=== PATIENT | male | born 1990 | race Caucasian/White ===

== ENCOUNTER 2018-05-23 16:30 | Emergency (ER) | payer SELFPAY ==
[2018-05-23 17:11] VITALS: BP 131/79
--- NOTE | 2018-05-23 17:16 | UC ---
Complaint Male HPI - HPI Summary HPI Summary: Patient presents complaining of a rash on the tip of his penis and a cloudy discharge around the same area for the past 3 days.. He feels like it is getting progressively worse he notes it was extremely itchy at onset and he feels he irritated the area with his scratching. He denies any actual urethral discharge he is adamant that he has never been sexually active. He denies any other rash he denies fever chills abdominal pain and offers no other complaints. - History of Current Complaint Stated Complaint: PERSONAL Time Seen by Provider: 05/23/18 17:08 Hx Obtained From: Patient Onset/Duration: Gradual Onset Timing: Constant Alleviating Factor(s): Nothing Associated Signs And Symptoms: Negative: Fever - Allergies/Home Medications Allergies/Adverse Reactions: Allergies Allergy/AdvReac Type Severity Reaction Status Date / Time No Known Allergies Allergy Verified 05/23/18 17:02 Home Medications: Home Medications Acetaminophen [Tylenol Extra Strength] 500 mg PO Q12H PRN 05/23/18 [History Confirmed 05/23/18] Levalbuterol HFA INHALER* [Xopenex Hfa Inhaler*] 2 puff INH Q4H PRN 05/23/18 [ History Confirmed 05/23/18] Naproxen Sodium [Aleve] 440 mg PO Q12H PRN 05/23/18 [History Confirmed 05/23/18] PMH/Surg Hx/FS Hx/Imm Hx Respiratory History: Asthma - Surgical History Surgical History: None - Family History Known Family History: Positive: None - Social History Occupation: Employed Full-time Substance Use Type: None Review of Systems Constitutional: Negative Skin: Rash - PENIS Eyes: Negative ENT: Negative Respiratory: Negative Cardiovascular: Negative Gastrointestinal: Negative Genitourinary: Negative Motor: Negative Neurovascular: Negative Musculoskeletal: Negative Neurological: Negative Psychological: Negative Is Patient Immunocompromised?: No All Other Systems Reviewed And Are Negative: Yes Physical Exam Triage Information Reviewed: Yes Appearance: Well-Appearing Vital Signs Reviewed: Yes Eyes: Positive: Conjunctiva Clear ENT: Positive: Normal ENT inspection Neck: Positive: Supple, Nontender, No Lymphadenopathy Respiratory: Positive: Lungs clear, Normal breath sounds Cardiovascular: Positive: RRR, No Murmur Abdomen Description: Positive: Nontender, No Organomegaly, Soft. Negative: CVA Tenderness (R), CVA Tenderness (L), Distended, Guarding Bowel Sounds: Positive: Present Male Genital Exam: Positive: Other - There is no inguinal adenopathy. Femoral pulses are strong. There is some superficial erosion and white exudate around the glans. Patient partially retracted skin for the exam and then returned to anatomic position. Those areas were exquisitely tender to palpation - culture was obtained during exam. The rest of the penis is without lesions or discharge. The testicles are down bilaterally cords are not swollen or tender. The testicles are nontender. The inguinal canals are patent. Musculoskeletal: Positive: ROM Intact Neurological: Positive: Alert Psychological: Positive: Age Appropriate Behavior Skin Exam: Normal Complaint Male Course/Dx - Course Course Of Treatment: Patient is nontoxic. He is not a diabetic. No concern for Doreen's. His exam is consistent with a balanitis which I will treat for both fungal and bacterial infection. A culture is pending. Need for close follow-up stressed. Referral given to urology as well. - Differential Dx/Diagnosis Provider Diagnoses: Balanitis Discharge - Sign-Out/Discharge Documenting (check all that apply): Patient Departure - Discharge Plan Condition: Stable Disposition: HOME Prescriptions: Cephalexin CAP* [Keflex CAP*] 500 mg PO TID #30 cap Fluconazole [Diflucan 150 MG (NF)] 150 mg PO ONCE #1 tab Nystatin CREAM* 1 applic TOPICAL BID #1 tube Patient Education Materials: Foreskin [facility] (ED), Balanitis (ED) Forms: *Work Release Referrals: Agapito ROSALES,Rodney Alatorre [Primary Care Provider] - 3 Days Phuc Christensen MD [Medical Doctor] - As Soon As Possible - Billing Disposition and Condition Condition: STABLE Disposition: Home Attestation Statement User Type: Provider - I was available for consult. This patient was seen by the BLANCHE. The patient was not presented to, seen by, or examined by me. -Diogenes
== END 2018-05-23 18:08 | disposition home or self-care (01) ==
LOC: UCCORT 16:30
DX: N48.1 Balanitis (principal); J45.909 Unspecified asthma, uncomplicated
CPT/HCPCS: 87070; 87205; 87640; 87641; 99202; G0463